=== PATIENT | male | born 2000 | race Caucasian/White ===

== ENCOUNTER 2023-12-14 06:46 | Emergency (ER) | payer OTHER, SELFPAY ==
[2023-12-14 06:47] VITALS: BP 126/72; PULSE 82; RESP 16; TEMP 36; O2SAT 98; BMI 21.9
--- NOTE | 2023-12-14 07:06 | EDS_ITS ---
HPI History of Present Illness Chief Complaint: Laceration Informant: patient Onset/Context/Timing Onset: Today Mechanism/Context: Fall Quality of Pain: Stabbing Location: Nose Current Severity: Mild Worsened by: Nothing Relieved by: Pressure Associated Symptoms Associated Symptoms: Negative for Parasthesias, Weakness, Loss of function, Inability to ambulate, Loss of consciousness or Amnesia Narrative Narrative: Patient presents with a laceration to his nose that occurred today. Patient states he was at work when he tripped and fell. Patient states he fell forward and his nose. Patient states he has some pain over his nose. Patient states it is mild. Patient describes it as stabbing. Patient is unsure of his last tetanus. Patient denies any loss of consciousness. Patient denies any other injuries. PFSH PFSH Medical History no medical history no medical history Home Medications NK 12/14/23 [History Last Taken Unknown] Allergy/AdvReac Type Severity Reaction Status Date / Time No Known Allergies Allergy Verified 12/14/23 06:47 Surgical History no surgical history no surgical history Social History Smoking Status: Current every day smoker tobacco type: e-cigarettes ROS ROS ED Constitutional Constitutional ED: Denies chills or fever(s) Eyes Eyes: Denies blurry vision or change in vision ENT ENT ED: Denies rhinorrhea or sore throat Cardiovascular Cardiovascular: Denies chest pain or palpitations Respiratory/Chest Respiratory/Chest: Denies cough or dyspnea Gastrointestinal Gastrointestinal: Denies nausea or vomiting Genitourinary Genitourinary ED: Denies dysuria or hematuria Musculoskeletal Musculoskeletal: Denies back pain or neck pain Integumentary Denies abscess or rash Neurologic Neurologic: Denies headache(s) or weakness Allergic/Immunologic Allergic/Immunologic ED: Denies mouth swelling or urticaria EXAM Physical Exam Const Vital Signs: 12/14/23 06:47 Temperature 96.8 F L Temperature Source Temporal Pulse Rate 82 Respiratory Rate 16 Blood Pressure 126/72 H Blood Pressure Mean 90 Pulse Ox 98 Positive well nourished and well developed General Appearance ED: well developed and NAD HEENT HEENT Narrative: There is a 2 cm full-thickness linear laceration over the septum of the nose. There is no septal deviation or septal hematoma noted. There is no active bleeding noted. There are no foreign bodies noted. There is moderate gapping of the wound margins. Eyes PERRL and EOMs intact bilaterally Neck full ROM Neuro oriented x3, CN's II-XII intact bilaterally, moves all extremities, no focal motor deficits and no sensory deficits noted [place] Coma Scale: document GCS findings Spontaneous Obeys Commands Oriented 15 Sensorium / Orientation: alert Motor Exam: strength 5/5 throughout Psych mental status grossly normal and thought process normal PROC Procedures Lacerations Nasal septum: Length: 2 cm Depth: Sub Q Shape: Linear Prep: Sterile Conditions and Chlorhexadine Laceration repair: Lidocaine, Local, Skin sutures and Wound explored Number of Sutures/Lokesh: 6 Suture Information: Ethilon, Simple and 6-0 MDM MDM MDM Narrative Medical decision making narrative: Patient was given a tetanus booster. The wound was cleaned with chlorhexidine. The wound was anesthetized with 1% plain lidocaine locally. The wound was closed with 6 simple interrupted #6-0 nylon sutures under sterile technique. Patient tolerated the procedure well. Bacitracin dressing was applied. Patient was instructed to keep the wound clean and dry. Patient was instructed to [facility]-up with [facility] in 5 days for wound recheck and suture removal. Patient was instructed to return if worse in any way. Patient understood and was agreeable with the plan. All questions were answered. Discharge Plan Triage Chief Complaint: Laceration ED Provider: Yogi Sharma Dx/Rx/DC Orders Clinical Impression: Nasal laceration, Fall Instructions: ED Laceration, All Closures Prescriptions: No Action NK Primary Care Provider: Care Physician,No Primary Referrals: NOT,DEFINED [Non-Staff] - [facility] [Non-Staff] - 5 Days for suture removal Disposition Disposition: Home, Self Care
[2023-12-14] MEDS: Diphth,Pertuss(Acell),Tet Vac 0.5 ML Vial IM (07:27)
[2023-12-14] MEDS: Lidocaine 1% (20 ml mdv) 20 ML Vial INFILT (07:28)
[2023-12-14 08:06] VITALS: BP 122/84; PULSE 89; RESP 18; TEMP 36.5; O2SAT 99
== END 2023-12-14 08:08 | disposition home or self-care (01) ==
PROVIDERS: Emergency Provider Emergency Medicine; Visit Provider Emergency Medicine
DX: S01.21XA Laceration without foreign body of nose, initial encounter (principal); W01.10XA Fall on same level from slipping, tripping and stumbling with subsequent striking against unspecified object, initial encounter; Y99.0 Civilian activity done for income or pay; Y92.89 Other specified places as the place of occurrence of the external cause; F17.290 Nicotine dependence, other tobacco product, uncomplicated; Z23 Encounter for immunization
CPT/HCPCS: 12011; 90471; 90715; 99283